=== PATIENT | female | born 1945 | race Caucasian/White ===

== ENCOUNTER 2020-06-18 10:32 | Outpatient (REF) | payer MEDICARE, OTHER, SELFPAY | END 2020-06-18 10:33 | disposition home or self-care (01) | LOC: HO.LAB 10:32 | PROVIDERS: PCP Internal Medicine; Visit Provider Internal Medicine | DX: Z20.828 Contact with and (suspected) exposure to other viral communicable diseases (principal) | CPT/HCPCS: C9803; U0003 ==

== ENCOUNTER 2022-07-04 09:54 | Outpatient (REF) | payer MEDICARE, OTHER, SELFPAY ==
[2022-07-04 12:54] LABS: Folate 18.8 ng/mL (> or = 4.0); Vitamin B12 438 pg/mL (200-900)
[2022-07-09 15:02] LABS: Vitamin D 25-OH, D2 <4 ng/mL; Vitamin D 25-OH, D3 38 ng/mL; Vitamin D 25-OH, Total 38 ng/mL (30-100)
== END 2022-07-04 09:55 | disposition home or self-care (01) ==
LOC: HO.10HDL 09:54
PROVIDERS: Visit Provider Psychiatry & Neurology Neurology
DX: R26.9 Unspecified abnormalities of gait and mobility (principal)
CPT/HCPCS: 36415; 82306; 82607; 82746; 99202

== ENCOUNTER 2022-08-23 10:00 | Outpatient (RCR) | payer MEDICARE, OTHER, SELFPAY ==
--- NOTE | 2022-10-20 08:46 | MHC.PT.DC ---
[facility] [place] [facility] [place] [facility] [place] [facility] [address] Rick Isaac [address] [phone] F: [phone] F: [phone] F: [phone] F: [phone] Physical Therapy Discharge Report Diagnosis: Abnormalities of Gait and mobility Date of Surgery: Date of Evaluation: 07/26/22 Date of Discharge: 09/20/22 Treatments to Date: 8 Cancellations to Date: No Shows to Date: Discharge Status: Improved Function Independent with HEP Discharge Summary: 08/23/22: pt progressed towards or met all goals. She is I with HEP and appropriate to d/c to HEP At this time. 08/18/21: improved performance of standing activities with reduced UE support. motivated and happy with progress so far. increased quad/STS strength. 08/16; Pt unable to SLS for 1 sec. instructed her with toe down touch with less frustration. She ambulate with short steps, almost shuffling, hardly any single leg stance time due to both weakness and balance concerns. Added more strengthening in standing, alternating to work on single leg stance time on each leg. She required CGA and use of bars to avoid loss of balance with all standing balance exercises. I encouraged her to continue with strengthening and endurance execises at home. Electronically signed by: Tony Rodriguez PT Please sign and return to therapist. Thank you for your referral.
== END 2022-10-20 08:47 | disposition home or self-care (01) ==
LOC: HO.PTCHIC 10:00
PROVIDERS: PCP Internal Medicine; Visit Provider Psychiatry & Neurology Neurology
DX: R26.9 Unspecified abnormalities of gait and mobility (principal)
CPT/HCPCS: 97110; 97112; 97163

== ENCOUNTER → 2022-12-26 09:17 | Outpatient (BNVA) | payer MEDICARE, OTHER, SELFPAY | PROVIDERS: PCP Internal Medicine; Visit Provider Psychiatry & Neurology Neurology | DX: R26.9 Unspecified abnormalities of gait and mobility (principal) | CPT/HCPCS: 99212 ==

== ENCOUNTER 2023-05-14 13:35 | Outpatient (AMB) | payer MEDICARE, OTHER, SELFPAY ==
--- NOTE | 2023-05-14 13:55 | MHC.OFFVIS ---
Intake Vital Signs 05/14/23 13:57 Height 4 ft 11 in Weight 161 lb BMI 32.5 BP 138/84 Blood Pressure Location Lt brachial Position Sitting Pulse 81 Pulse Source Pulse Oximeter Pulse Oximetry (%) 99 Oxygen Delivery Method Room Air Intake Visit Reasons: 6m follow up gait disorder Intake Note: Pt presents to the office for a 6 month follow up for gait disorder. Pt states she is feeling okay. Pt states she is still having issues with her balance and walking. Pt states she is also more tired than usual. Allergies Penicillins Allergy (Intermediate, Verified 05/14/23 14:02) Rash Medication List - Last Reconciled 05/14/23 by Emily Serrato MD aspirin (Adult Low Dose Aspirin) 81 mg PO DAILY atenolol 25 mg PO DAILY calcium citrate-vitamin D3 250 mg-5 mcg (200 unit) 1 tab PO TID cholecalciferol (vitamin D3) 50 mcg PO QAM levothyroxine 100 mcg PO DAILY lisinopril 5 mg PO DAILY mirabegron ER (Myrbetriq) 25 mg PO DAILY multivitamin (Daily Multi-Vitamin tablet) 1 tab PO DAILY simvastatin 10 mg PO BEDTIME HPI HPI Comments History of Present Illness Details 78y/o female comes for follow up of gait and balance issues. she did well with PT . she occasionally festinates No tremors, no recent falls, no speech issues, no memory issues. No h/o depression or anxiety.NO REM behavior disorder. No change is hand writing No back pain or neck pain . she has h/o arthritis and had elda knee replacements in 2010,2012. she also had a right achilles tendon tear in 2018 after a fall.she has occasional tingling in her feet MRI Brain 06/03 - mild white matter changes. she reports fatigue. She has trouble sleeping due to joint pain and nocturia. [facility] Medical History Gait disorder Stress incontinence Arthritis Hypothyroidism Obesity Hyperlipidemia History of varicocele HTN (hypertension) Carotid stenosis Renal insufficiency FH: cholecystectomy Toenail avulsion Surgical History Hx laparoscopic cholecystectomy History of hysteroscopy H/O shoulder surgery H/O knee surgery History of eye surgery Hx of appendectomy H/O colonoscopy Family History Mother Bone cancer Son Hematuria Daughter Hematuria Sister Uterine cancer Sister HTN (hypertension) Father Neuropathy Social History Alcohol intake: never Patient Tobacco Use Status: Never used Tobacco Physical Exam Vital Signs: Last Vital Signs Pulse 81 05/14/23 13:57 BP 138/84 05/14/23 13:57 Pulse Ox 99 05/14/23 13:57 Oxygen Delivery Method Room Air 05/14/23 13:57 BMI result Body Mass Index 32.5 Const General: cooperative, healthy appearing and comfortable Nutritional Appearance: overweight Orientation/consciousness: patient oriented x3 Limitations: no limitations HEENT Head: Yes normal to inspection Eyes Pupils: Equal, round and reactive pupils present Neuro Other: moderately decreased facial expression and blink decreased FFM and foot taps on left decreased arm swing on the left General: patient oriented x3, tone normal and moves all extremities Cranial nerves: Yes Facial sensation intact/muscles of mastication intact, Yes Equal, round and reactive pupils present, Yes Bilaterally intact EOM present, Yes Nystagmus not present, Yes Normal facial strength present, Yes Midline tongue present and Yes Symmetric palate elevation present Gait exam (Neuro): Other gait observations present (slowgait , shuffling when she turns ) Motor exam (neuro): 5/5 motor strength present throughout Coordination: [id number] test normal Assessment & Plan Assessment & Plan (1) Gait disorder: Comment: multifactorial, deconditioning, musculoskeletal , ? white matter disease etc, ? parkinsonism Code(s): R26.9 - Unspecified abnormalities of gait and mobility Plan Continue exercise Discussed fall prevention- use walker if needed I will trial her on sinemet 25/100 bid Mild parkinsons symptoms- patient wants to hold off on medications F/u in 6 mths or earlier if her symptoms progress Medications: New carbidopa-levodopa 25-100 mg (Sinemet) 1 tab PO BID 60 tabs 6RF Coding Level of Care Code Est Pt Level 4 (93074) Diagnoses Gait disorder R26.9
[2023-05-14 13:57] VITALS: BP 138/84; PULSE 81; O2SAT 99; BMI 32.5
== END 2023-05-14 14:28 | disposition home or self-care (01) ==
PROVIDERS: Visit Provider Psychiatry & Neurology Neurology
DX: R26.9 Unspecified abnormalities of gait and mobility (principal)
CPT/HCPCS: 99214

== ENCOUNTER → 2023-05-14 13:35 | Outpatient (BNVA) | payer MEDICARE, OTHER, SELFPAY | PROVIDERS: Visit Provider Psychiatry & Neurology Neurology | DX: R26.9 Unspecified abnormalities of gait and mobility (principal) | CPT/HCPCS: 99212 ==